=== PATIENT | female | born 1990 | race Caucasian/White ===

== ENCOUNTER 2018-11-27 06:26 | Inpatient (IN) | payer BC ==
[2018-11-27] MEDS ORDERED: Nalbuphine 20 MG/ML 1 ML Syringe IVPUSH PRN (07:04)
[2018-11-27] MEDS ORDERED: Ondansetron 4 MG/2 ML SDV IVPUSH PRN (07:04)
[2018-11-27] MEDS ORDERED: Sodium Chloride 0.9% 10 ML Syringe FLUSH PRN (07:04)
[2018-11-27] MEDS ORDERED: Oxytocin/Lactated Ringers 10 UNIT/1,000 ML BAG IV SCH ×2 (07:15→17:00)
--- NOTE | 2018-11-27 07:17 | PCM.LDHP ---
L&D History of Present Illness - General Date of Service: 11/27/18 Admit Problem/Dx: Patient Status Order with Admit Dx/Problem 11/27/18 07:04 Patient Status [ADT] Routine Admission Diagnosis/Problem Admission Diagnosis/Problem Normal labor Source of Information: Patient History Limitations: Reports: No Limitations - History of Present Illness Introduction:: Patient is a 28 y/o G 3 P0111 at 38 6/7 wks who presents in labor. Contractions started at about 0400 this AM. Along with contractions feels very nauseated. Throwing up with contractions at times. No concerns for LOF or VB. - Related Data Allergies/Adverse Reactions: Allergies Allergy/AdvReac Type Severity Reaction Status Date / Time No Known Allergies Allergy Verified 10/16/16 14:47 Past Medical History [employer]WORK ENG[employer]ER History: Reports: , Spontaneous : 3 Para: 1 LMP (Approximate): - Infectious Disease History Infectious Disease History: Reports: Herpes - Past Surgical History Musculoskeletal Surgical History: Reports: Other (See Below) (Wrist surgery) Social & Family History - Family History Family Medical History: Noncontributory - Tobacco Use Smoking Status *Q: Never Smoker - Alcohol Use Alcohol Use History: No - Recreational Drug Use Recreational Drug Use: No H&P Review of Systems - Review of Systems: Review Of Systems: See Below General: Reports: No Symptoms Pulmonary: Reports: No Symptoms Cardiovascular: Reports: No Symptoms Gastrointestinal: Reports: Nausea, Vomiting Genitourinary: Reports: No Symptoms Musculoskeletal: Reports: No Symptoms Skin: Reports: No Symptoms Psychiatric: Reports: No Symptoms Neurological: Reports: No Symptoms L&D Exam - Exam Exam: See Below - OB Specific Contraction Intensity: Moderate Movement: Active Heart Tones: Present Heart Tones per Min: 135 Heart Rate (FHR) Variability: Moderate (6-25 bmp) Presentation: Vertex - Coe Score Coe Score Cervix Position: Midposition Coe Score Consistency: Soft Coe Score Effacement: 51-70% Coe Score Dilation: 3-4 cm Coe Score 's Station: -2 Coe Score Total: 8 - Exam General: Alert, Oriented, Mild Distress Lungs: Clear to Auscultation, Normal Respiratory Effort Cardiovascular: Regular Rate, Regular Rhythm GI/Abdominal Exam: Soft, Non-Tender Genitourinary: Normal external exam Extremities: Normal Inspection Skin: Warm, Dry, Intact - Problem List (1) 38 weeks gestation of SNOMED Code(s): 39859639 ICD Code: Z3A.38 - 38 WEEKS GESTATION OF Status: Acute Current Visit: Yes (2) Normal labor SNOMED Code(s): 35572434 ICD Code: O80 - ENCOUNTER FOR FULL-TERM UNCOMPLICATED DELIVERY; Z37.9 - OUTCOME OF DELIVERY, UNSPECIFIED Status: Acute Current Visit: Yes Problem List Initiated/Reviewed/Updated: Yes Orders Last 24hrs: Active Orders 24 hr Category Date Time Status Patient Status [ADT] Routine ADT 11/27/18 07:04 Ordered Activity as Tolerated [RC] PFP Care 11/27/18 07:04 Ordered Communication Order [RC] ASDIRECTED Care 11/27/18 07:04 Ordered Heart Tones [RC] ASDIRECTED Care 11/27/18 07:04 Ordered Non Stress Test [RC] PER UNIT ROUTINE Care 11/27/18 07:04 Ordered Notify Provider [RC] PFP Care 11/27/18 07:04 Ordered Notify Provider [RC] PRN Care 11/27/18 07:04 Ordered Peripheral IV Care [RC] . DIRECTED Care 11/27/18 07:04 Ordered Vital Signs [RC] PER UNIT ROUTINE Care 11/27/18 07:04 Ordered Regular Diet [DIET] Diet 11/27/18 Breakfast Ordered CBC W/O DIFF,HEMOGRAM [HEME] Routine Lab 11/27/18 07:04 Ordered RAPID PLASMA REAGIN,RPR [CHEM] Routine Lab 11/27/18 07:04 Ordered TYPE AND SCREEN [BBK] Routine Lab 11/27/18 07:04 Ordered Lactated Ringers [Ringers, Lactated] 1,000 ml Med 11/27/18 07:15 Ordered IV ASDIRECTED Nalbuphine [Nubain] Med 11/27/18 07:04 Ordered 10 mg IVPUSH Q2H PRN Ondansetron [Zofran] Med 11/27/18 07:04 Ordered 4 mg IVPUSH Q4H PRN Oxytocin/Lactated Ringers [Pitocin in LR 10 Units/1,000 Med 11/27/18 07:15 Ordered ML] 10 unit in 1,000 ml IV .CONTINUOUS Sodium Chloride 0.9% [Saline Flush] Med 11/27/18 07:04 Ordered 10 ml FLUSH ASDIRECTED PRN Electronic Heart Tones Ext w TOCO [WOMSER] Oth 11/27/18 07:04 Ordered Routine Electronic Heart Tones Internal [WOMSER] Per Unit Ot 11/27/18 07:04 Ordered Routine Peripheral IV Insertion Adult [OM.PC] Routine Oth 11/27/18 07:04 Ordered Resuscitation Status Routine Resus Stat 11/27/18 07:04 Ordered Medication Orders Lactated Ringer's (Ringers, Lactated) 1,000 mls @ 100 mls/hr IV ASDIRECTED VINOD Oxytocin/Lactated Ringer's (Pitocin In Lr 10 Units/1,000 Ml) 10 unit in 1,000 mls @ 500 mls/hr IV .CONTINUOUS VINOD Nalbuphine HCl (Nubain) 10 mg IVPUSH Q2H PRN PRN Reason: pain Ondansetron HCl (Zofran) 4 mg IVPUSH Q4H PRN PRN Reason: Nausea/Vomiting Sodium Chloride (Saline Flush) 10 ml FLUSH ASDIRECTED PRN PRN Reason: Keep Vein Open Assessment/Plan Comment:: 28 y/o at 38 6/7 wks presents in early labor (cervix 1 cm last week in clinic, 2-3 and more effaced today) * Labs * GBS negative, no need for antibiotics * Pain management per patient preference * Hx of HSV, no concerns for outbreak * Anticipate
[2018-11-27] MEDS ORDERED: diphenhydrAMINE 50 MG/ML SDV IVPUSH PRN ×2 (07:30→08:42)
[2018-11-27] MEDS: Lactated Ringers 1,000 ML IV SCH ×5 (07:40→17:21)
[2018-11-27] MEDS ORDERED: fentaNYL 100 MCG/2 ML SDV EPIDUR PRN (08:42)
[2018-11-27] MEDS ORDERED: ePHEDrine 50 MG/ML SDV IVPUSH PRN (08:42)
[2018-11-27] MEDS ORDERED: fentaNYL 100 MCG/2 ML SDV ONE (08:53)
--- NOTE | 2018-11-27 09:18 | PCM.PREANE ---
Preanesthetic Assessment - Procedure Proposed Procedure: kym - Anesthesia/Transfusion/Family Hx Anesthesia History: Prior Anesthesia Without Reaction Family History of Anesthesia Reaction: No Transfusion History: No Prior Transfusion(s) - Review of Systems General: No Symptoms, Chills (today) Pulmonary: No Symptoms Cardiovascular: No Symptoms Gastrointestinal: No Symptoms Neurological: No Symptoms Other: Reports: None - Physical Assessment O2 Sat by Pulse Oximetry: 98 Respiratory Rate: 18 Vital Signs: Last Vital Signs Temp 98.2 F 11/27/18 07:04 Pulse 111 H 11/27/18 07:04 Resp 18 11/27/18 07:04 BP 115/65 11/27/18 07:04 Pulse Ox 98 11/27/18 07:04 Height: 5 ft 3 in Weight: 82.1 kg ASA Class: 2 Mental Status: Alert & Oriented x3 Airway Class: Mallampati = 1 Dentition: Reports: Normal Dentition Thyro-Mental Finger Breadths: 3 Mouth Opening Finger Breadths: 3 ROM/Head Extension: Full Lungs: Clear to Auscultation, Normal Respiratory Effort Cardiovascular: Regular Rate, Regular Rhythm - Lab Values: Laboratory Last Values WBC 13.39 K/mm3 (3.98-10.04) H 11/27/18 07:23 RBC 4.30 M/mm3 (3.98-5.22) 11/27/18 07:23 Hgb 13.0 gm/L (11.2-15.7) D 11/27/18 07:23 Hct 39.1 % (34.1-44.9) 11/27/18 07:23 MCV 90.9 fl (79.4-94.8) 11/27/18 07:23 MCH 30.2 pg (25.6-32.2) 11/27/18 07:23 MCHC 33.2 g/dl (32.2-35.5) 11/27/18 07:23 RDW Std Deviation 46.7 fL (36.4-46.3) H 11/27/18 07:23 Plt Count 230 K/mm3 (182-369) 11/27/18 07:23 MPV 9.7 fl (9.4-12.3) 11/27/18 07:23 - Allergies Allergies/Adverse Reactions: Allergies Allergy/AdvReac Type Severity Reaction Status Date / Time No Known Allergies Allergy Verified 10/16/16 14:47 - Blood Blood Available: No - Acknowledgements Anesthesia Type Planned: Epidural Pt an Appropriate Candidate for the Planned Anesthesia: Yes Alternatives and Risks of Anesthesia Discussed w Pt/Guardian: Yes Pt/Guardian Understands and Agrees with Anesthesia Plan: Yes PreAnesthesia Questionnaire - Past Health History Medical/Surgical History: Denies Medical/Surgical History Cardiovascular History: Reports: None Respiratory History: Reports: None LOCATION DIRECTOR History: Reports: , Spontaneous : 2 (39) Para: 1 - Infectious Disease History Infectious Disease History: Reports: Herpes - Past Surgical History HEENT Surgical History: Reports: None Musculoskeletal Surgical History: Reports: Other (See Below) (closed reduction wrist) - History Comment History Comment: meds: vits and iron and acyclovir - SUBSTANCE USE Smoking Status *Q: Never Smoker Tobacco Use Within Last Twelve Months: No Second Hand Smoke Exposure: No Days Per Week of Alcohol Use: 0 Recreational Drug Use History: No - CURRENT (IN HOUSE) MEDS Current Meds: Current Medications Diphenhydramine HCl (Benadryl) 25 mg IVPUSH Q4H PRN PRN Reason: Nausea/Vomiting Diphenhydramine HCl (Benadryl) 25 mg IVPUSH Q6H PRN PRN Reason: pruritis Stop: 11/27/18 18:00 Ephedrine Sulfate (Ephedrine Sulfate) 5 mg IVPUSH ASDIRECTED PRN PRN Reason: Hypotension Stop: 11/27/18 18:00 Fentanyl (Sublimaze) 100 mcg EPIDUR Q3H PRN PRN Reason: Pain Fentanyl/Bupivacaine HCl (Qljqpwwj-Rytbf-Iz 2 Mcg/Ml-0.125%) 100 ml EPIDUR ONETIME PRN PRN Reason: Pain Lactated Ringer's (Ringers, Lactated) 1,000 mls @ 100 mls/hr IV ASDIRECTED VINOD Last Admin: 11/27/18 08:30 Dose: 100 mls/hr Oxytocin/Lactated Ringer's (Pitocin In Lr 10 Units/1,000 Ml) 10 unit in 1,000 mls @ 500 mls/hr IV .CONTINUOUS VINOD Nalbuphine HCl (Nubain) 10 mg IVPUSH Q2H PRN PRN Reason: pain Ondansetron HCl (Zofran) 4 mg IVPUSH Q4H PRN PRN Reason: Nausea/Vomiting Last Admin: 11/27/18 07:45 Dose: 4 mg Sodium Chloride (Saline Flush) 10 ml FLUSH ASDIRECTED PRN PRN Reason: Keep Vein Open Discontinued Medications Fentanyl (Sublimaze) Confirm Administered Dose 100 mcg .ROUTE .[facility] ONE Stop: 11/27/18 08:54
[2018-11-27] MEDS: fentaNYL/Bupivacaine-NS 2 MCG/ML-0.125%/PF 100 ML Bag EPIDUR PRN ×2 (09:19→16:04)
[2018-11-27] MEDS ORDERED: Sodium Chloride 0.9% 1,000 ML IV ONE (12:04)
[2018-11-27] MEDS ORDERED: Sodium Chloride 0.9% 1,000 ML ONE (12:06)
--- NOTE | 2018-11-27 12:32 | PCM.PNLD ---
Labor Progress Note - VS & Meds Vital Signs: Last Vital Signs Temp 36.8 C 11/27/18 07:04 Pulse 111 H 11/27/18 07:04 Resp 18 11/27/18 09:18 BP 115/65 11/27/18 07:04 Pulse Ox 98 11/27/18 09:18 Active Medications: Current Medications Diphenhydramine HCl (Benadryl) 25 mg IVPUSH Q4H PRN PRN Reason: Nausea/Vomiting Diphenhydramine HCl (Benadryl) 25 mg IVPUSH Q6H PRN PRN Reason: pruritis Stop: 11/27/18 18:00 Ephedrine Sulfate (Ephedrine Sulfate) 5 mg IVPUSH ASDIRECTED PRN PRN Reason: Hypotension Stop: 11/27/18 18:00 Fentanyl (Sublimaze) 100 mcg EPIDUR Q3H PRN PRN Reason: Pain Last Admin: 11/27/18 09:19 Dose: 100 mcg Fentanyl/Bupivacaine HCl (Dtfcooin-Zgtjt-Ew 2 Mcg/Ml-0.125%) 100 ml EPIDUR ONETIME PRN PRN Reason: Pain Last Admin: 11/27/18 09:19 Dose: 100 ml Lactated Ringer's (Ringers, Lactated) 1,000 mls @ 100 mls/hr IV ASDIRECTED VINOD Last Admin: 11/27/18 10:21 Dose: 100 mls/hr Oxytocin/Lactated Ringer's (Pitocin In Lr 10 Units/1,000 Ml) 10 unit in 1,000 mls @ 500 mls/hr IV .CONTINUOUS VINOD Sodium Chloride (Normal Saline) 1,000 mls @ 999 mls/hr IV ONETIME ONE Stop: 11/27/18 13:04 Last Admin: 11/27/18 12:12 Dose: 999 mls/hr Nalbuphine HCl (Nubain) 10 mg IVPUSH Q2H PRN PRN Reason: pain Ondansetron HCl (Zofran) 4 mg IVPUSH Q4H PRN PRN Reason: Nausea/Vomiting Last Admin: 11/27/18 07:45 Dose: 4 mg Sodium Chloride (Saline Flush) 10 ml FLUSH ASDIRECTED PRN PRN Reason: Keep Vein Open Discontinued Medications Fentanyl (Sublimaze) Confirm Administered Dose 100 mcg .ROUTE .[facility]-MED ONE Stop: 11/27/18 08:54 Sodium Chloride (Normal Saline) Confirm Administered Dose 1,000 mls @ as directed .ROUTE .[employer] ONE Stop: 11/27/18 12:07 - Uterine Contractions Uterine Monitoring Mode: External [place] Contraction Intensity: Moderate - Monitoring Monitor Mode: External Ultrasound Heart Rate (FHR) Baseline: 135 Heart Rate (FHR) Variability: Moderate (6-25 bmp) Accelerations: Present, 15x15 Decelerations: None Strip Review: Category I - Vaginal Exam Dilation (cm): 5 Effacement (Percent): 80 Station: -1 Cervical Position: Midposition - Labor Progress (Free Text) Labor Progress: Doing well. Had attempted AROM at 1030, but did not get any fluid back. No BOW noted. Again attempted AROM, but no BOW noted. Patient is making change. Having continuous large amounts of watery diarrhea. Stool testing ordered. Will make Pediatric team aware as well.
[2018-11-27] MEDS ORDERED: Lidocaine 1.5% with EPINEPHrine 1:200,000 5 ML Amp ONE (14:00)
[2018-11-27] MEDS ORDERED: Bupivacaine 0.25% 10 ML SDV ONE (14:00)
[2018-11-27] MEDS ORDERED: Gentamicin 40 MG/ML 2 ML Vial IV ONE ×2 (15:15→15:30)
[2018-11-27] MEDS ORDERED: Ampicillin 2 GM in Sodium Chloride 0.9% 100 ML IV ONE (15:15)
[2018-11-27] MEDS ORDERED: fentaNYL/Bupivacaine-NS 2 MCG/ML-0.125%/PF 100 ML Bag EPIDUR ONE (15:24)
[2018-11-27] MEDS ORDERED: Acetaminophen 325 MG/10.15 ML ML PO PRN (16:32)
--- NOTE | 2018-11-27 17:59 | PCM.DEL ---
L & D Note - General Info Date of Service: 11/27/18 - Delivery Note Labor: Spontaneous Delivery Outcome: Livebirth Delivery Method: Spontaneous Vaginal Delivery-Single Delivery Mode: Spontaneous Presentation: Left Occiput Anterior (SERA) Nuchal Cord: None Anesthesia Type: Epidural Amniotic Fluid Description: Clear Episiotomy Type: None Laceration: 2nd Degree, Perineal Suture type: Vicryl Suture size: 2-0 Placenta: Intact, Spontaneous Cord: 3 Vessels Estimated Blood Loss: 200 : Bulb Syringe, Stimulated, Warmed, [place] Used, Warmer Used Delivery Comments (Free Text/Narrative):: Patient found to be complete and began pushing. Contractions very spaced out and contractions not felt to be strong. Pitocin started about 30 minutes into pushing. Contraction effort much improved. After about 1.5 hours head emerged from SERA presentation. No nuchal cord present. With gentle downward traction the shoulders and body delivered. placed on maternal abdomen. Cord clamped and cut. Cord blood obtained. Placenta allowed time to separate and expelled intact. Inspection of the perineum showed a 2nd degree laceration which was repaired with a 2-0 vicryl in the typical fashion - General Info Date of Service: 11/27/18 - Patient Data Vitals - Most Recent: Last Vital Signs Temp 36.8 C 11/27/18 07:04 Pulse 111 H 11/27/18 07:04 Resp 18 11/27/18 09:18 BP 115/65 11/27/18 07:04 Pulse Ox 98 11/27/18 09:18 Weight - Most Recent: 82.1 kg I&O - Last 24 Hours: Intake & Output 11/27/18 11/27/18 11/27/18 06:59 14:59 22:59 Intake Total 4360 1200 Balance 4360 1200 Lab Results Last 24 Hours: Laboratory Results - last 24 hr 11/27/18 11/27/18 11/27/18 Range/Units 07:13 07:13 07:23 WBC 13.39 H (3.98-10.04) K/mm3 RBC 4.30 (3.98-5.22) M/mm3 Hgb 13.0 D (11.2-15.7) gm/L Hct 39.1 (34.1-44.9) % MCV 90.9 (79.4-94.8) fl MCH 30.2 (25.6-32.2) pg MCHC 33.2 (32.2-35.5) g/dl RDW Std Deviation 46.7 H (36.4-46.3) fL Plt Count 230 (182-369) K/mm3 MPV 9.7 (9.4-12.3) fl RPR Non-reactive (NONREACTIVE) C.difficile 027-NAP1-B1 C. difficile Tox (PCR) Blood Type O POSITIVE Gel Antibody Screen Negative 11/27/18 Range/Units 11:15 WBC (3.98-10.04) K/mm3 RBC (3.98-5.22) M/mm3 Hgb (11.2-15.7) gm/L Hct (34.1-44.9) % MCV (79.4-94.8) fl MCH (25.6-32.2) pg MCHC (32.2-35.5) g/dl RDW Std Deviation (36.4-46.3) fL Plt Count (182-369) K/mm3 MPV (9.4-12.3) fl RPR (NONREACTIVE) C.difficile 027-NAP1-B1 Presumptive negative C. difficile Tox (PCR) Negative Blood Type Gel Antibody Screen Med Orders - Current: Current Medications Acetaminophen (Tylenol) 975 mg PO Q6H PRN PRN Reason: Fever Last Admin: 11/27/18 16:42 Dose: 975 mg Diphenhydramine HCl (Benadryl) 25 mg IVPUSH Q4H PRN PRN Reason: Nausea/Vomiting Diphenhydramine HCl (Benadryl) 25 mg IVPUSH Q6H PRN PRN Reason: pruritis Stop: 11/27/18 18:00 Ephedrine Sulfate (Ephedrine Sulfate) 5 mg IVPUSH ASDIRECTED PRN PRN Reason: Hypotension Stop: 11/27/18 18:00 Fentanyl (Sublimaze) 100 mcg EPIDUR Q3H PRN PRN Reason: Pain Last Admin: 11/27/18 09:19 Dose: 100 mcg Fentanyl/Bupivacaine HCl (Xnruxauz-Zrrxy-Ai 2 Mcg/Ml-0.125%) 100 ml EPIDUR ONETIME PRN PRN Reason: Pain Last Admin: 11/27/18 16:04 Dose: 100 ml Lactated Ringer's (Ringers, Lactated) 1,000 mls @ 100 mls/hr IV ASDIRECTED VINOD Last Admin: 11/27/18 17:21 Dose: 100 mls/hr Oxytocin/Lactated Ringer's (Pitocin In Lr 10 Units/1,000 Ml) 10 unit in 1,000 mls @ 500 mls/hr IV .CONTINUOUS VINOD Oxytocin/Lactated Ringer's (Pitocin In Lr 10 Units/1,000 Ml) 10 unit in 1,000 mls @ 12 mls/hr IV TITRATE VINOD; Protocol Last Titration: 11/27/18 17:35 Dose: 6 munits/min, 36 mls/hr Nalbuphine HCl (Nubain) 10 mg IVPUSH Q2H PRN PRN Reason: pain Ondansetron HCl (Zofran) 4 mg IVPUSH Q4H PRN PRN Reason: Nausea/Vomiting Last Admin: 11/27/18 07:45 Dose: 4 mg Sodium Chloride (Saline Flush) 10 ml FLUSH ASDIRECTED PRN PRN Reason: Keep Vein Open Discontinued Medications Fentanyl (Sublimaze) Confirm Administered Dose 100 mcg .ROUTE .[facility]-MED ONE Stop: 11/27/18 08:54 Fentanyl/Bupivacaine HCl (Imgwjztc-Qsege-Ib 2 Mcg/Ml-0.125%) 100 ml EPIDUR ONETIME ONE Stop: 11/27/18 15:25 Gentamicin Sulfate (Gentamicin) 410 mg IV ONETIME ONE Stop: 11/27/18 15:16 Gentamicin Sulfate (Gentamicin) 5 mg IV .Pharmacy to Dose ONE Stop: 11/27/18 15:31 Sodium Chloride (Normal Saline) 1,000 mls @ 999 mls/hr IV ONETIME ONE Stop: 11/27/18 13:04 Last Admin: 11/27/18 12:12 Dose: 999 mls/hr Sodium Chloride (Normal Saline) Confirm Administered Dose 1,000 mls @ as directed .ROUTE .[facility]-MED ONE Stop: 11/27/18 12:07 Ampicillin Sodium 2 gm/ Sodium (Chloride) 100 mls @ 200 mls/hr IV ONETIME ONE Stop: 11/27/18 15:44 Last Admin: 11/27/18 15:28 Dose: 200 mls/hr Gentamicin Sulfate 410 mg/ (Sodium Chloride) 110.25 mls @ 220.5 mls/hr IV ONETIME ONE Stop: 11/27/18 15:59 Last Admin: 11/27/18 15:43 Dose: 220.5 mls/hr - Problem List & Annotations (1) 38 weeks gestation of SNOMED Code(s): 34221654 Code(s): Z3A.38 - 38 WEEKS GESTATION OF Status: Acute Current Visit: Yes (2) Normal labor SNOMED Code(s): 28250794 Code(s): O80 - ENCOUNTER FOR FULL-TERM UNCOMPLICATED DELIVERY; Z37.9 - OUTCOME OF DELIVERY, UNSPECIFIED Status: Acute Current Visit: Yes (3) Diarrhea SNOMED Code(s): 66813299 Code(s): R19.7 - DIARRHEA, UNSPECIFIED Status: Acute Current Visit: Yes (4) Chorioamnionitis SNOMED Code(s): 32639799 Code(s): O41.1290 - CHORIOAMNIONITIS, UNSP TRIMESTER, NOT APPLICABLE OR UNSP Status: Acute Current Visit: Yes Qualifiers: Fetus number: single or unspecified fetus Trimester: third trimester Qualified Code(s): O41.1230 - Chorioamnionitis, third trimester, not applicable or unspecified (5) Vaginal delivery SNOMED Code(s): 076167422 Code(s): O80 - ENCOUNTER FOR FULL-TERM UNCOMPLICATED DELIVERY Status: Acute Current Visit: Yes - Problem List Review Problem List Initiated/Reviewed/Updated: Yes - My Orders Last 24 Hours: My Active Orders 11/27/18 07:04 Patient Status [ADT] Routine Activity as Tolerated [RC] PFP Communication Order [RC] ASDIRECTED Heart Tones [RC] ASDIRECTED Notify Provider [RC] PFP Notify Provider [RC] PRN Peripheral IV Care [RC] . DIRECTED Vital Signs [RC] PER UNIT ROUTINE Nalbuphine [Nubain] 10 mg IVPUSH Q2H PRN Ondansetron [Zofran] 4 mg IVPUSH Q4H PRN Sodium Chloride 0.9% [Saline Flush] 10 ml FLUSH ASDIRECTED PRN Electronic Heart Tones Ext w TOCO [WOMSER] Routine Electronic Heart Tones Internal [WOMSER] Per Unit Routine Peripheral IV Insertion Adult [OM.PC] Routine Resuscitation Status Routine 11/27/18 07:15 Lactated Ringers [Ringers, Lactated] 1,000 ml IV ASDIRECTED Oxytocin/Lactated Ringers [Pitocin in LR 10 Units/1,000 ML] 10 unit in 1,000 ml IV .CONTINUOUS 11/27/18 07:30 diphenhydrAMINE [Benadryl] 25 mg IVPUSH Q4H PRN 11/27/18 11:04 Isolation [COMM] Stat 11/27/18 11:15 CULTURE STOOL + SHIGATOX [RM] Routine 11/27/18 16:32 Acetaminophen [Tylenol] 975 mg PO Q6H PRN 11/27/18 17:00 Oxytocin/Lactated Ringers [Pitocin in LR 10 Units/1,000 ML] 10 unit in 1,000 ml IV TITRATE 11/27/18 17:56 Patient Status Manage Transfer [TRANSFER] Routine 11/27/18 Breakfast Regular Diet [DIET] - Assessment Assessment:: 28 y/o G3 now P1112 PPD#0 from at 38 6/7 wks - Plan Plan:: * S/p Amp and Gent. No further antibiotics planned. Will monitor closely * Monitor diarrhea, awaiting stool testing * Encourage breast feeding * Discharge home in 2 days
[2018-11-27] MEDS ORDERED: Witch Hazel Medicated Pads 40/Jar TOP PRN (18:31)
[2018-11-27] MEDS ORDERED: Docusate Sodium 100 MG Cap PO PRN (18:31)
[2018-11-27] MEDS ORDERED: Benzocaine/Menthol 20%-0.5% Spray 56 GM Canister TOP PRN (18:31)
[2018-11-27] MEDS ORDERED: Lanolin 100% Cream 7 GM Tube TOP PRN (18:31)
--- NOTE | 2018-11-27 20:53 | PCM.SN ---
- Free Text/Narrative Note: 1530 Called by nursing due to patient finding of fever. Ordered gent and ampicillin to treat presumed chorioamnionitis. Nursing notes with SVE does not feel membranes, but again does not notice leaking of fluid. Will continue to monitor Alyssa To MD
[2018-11-27] MEDS: Ibuprofen 600 MG Tab PO PRN (22:57)
[2018-11-28] MEDS: Acetaminophen 325 MG Tab PO PRN ×2 (03:12→10:05)
[2018-11-28] MEDS: Ibuprofen 600 MG Tab PO PRN ×3 (05:23→21:56)
--- NOTE | 2018-11-28 06:42 | PCM.PNPP ---
- General Info Date of Service: 11/28/18 Functional Status: Reports: Pain Controlled, Tolerating Diet, Ambulating, Urinating - Review of Systems General: Reports: No Symptoms Pulmonary: Reports: No Symptoms Cardiovascular: Reports: No Symptoms Gastrointestinal: Reports: No Symptoms (Diarrhea resolved last night ) Genitourinary: Reports: No Symptoms Musculoskeletal: Reports: No Symptoms - Patient Data Vital Signs - Most Recent: Last Vital Signs Temp 37.0 C 11/28/18 03:10 Pulse 104 H 11/28/18 03:10 Resp 16 11/28/18 03:10 BP 108/57 L 11/28/18 03:10 Pulse Ox 98 11/28/18 03:10 Weight - Most Recent: 82.1 kg I&O - Last 24 Hours: Intake & Output 11/27/18 11/27/18 11/28/18 14:59 22:59 06:59 Intake Total 4360 1200 Balance 4360 1200 Lab Results - Last 24 Hours: Laboratory Results - last 24 hr 11/27/18 11/27/18 11/27/18 Range/Units 07:13 07:13 07:23 WBC 13.39 H (3.98-10.04) K/mm3 RBC 4.30 (3.98-5.22) M/mm3 Hgb 13.0 D (11.2-15.7) gm/L Hct 39.1 (34.1-44.9) % MCV 90.9 (79.4-94.8) fl MCH 30.2 (25.6-32.2) pg MCHC 33.2 (32.2-35.5) g/dl RDW Std Deviation 46.7 H (36.4-46.3) fL Plt Count 230 (182-369) K/mm3 MPV 9.7 (9.4-12.3) fl RPR Non-reactive (NONREACTIVE) C.difficile 027-NAP1-B1 C. difficile Tox (PCR) Blood Type O POSITIVE Gel Antibody Screen Negative 11/27/18 Range/Units 11:15 WBC (3.98-10.04) K/mm3 RBC (3.98-5.22) M/mm3 Hgb (11.2-15.7) gm/L Hct (34.1-44.9) % MCV (79.4-94.8) fl MCH (25.6-32.2) pg MCHC (32.2-35.5) g/dl RDW Std Deviation (36.4-46.3) fL Plt Count (182-369) K/mm3 MPV (9.4-12.3) fl RPR (NONREACTIVE) C.difficile 027-NAP1-B1 Presumptive negative C. difficile Tox (PCR) Negative Blood Type Gel Antibody Screen Med Orders - Current: Current Medications Acetaminophen (Tylenol) 650 mg PO Q4H PRN PRN Reason: mild pain or fever Last Admin: 11/28/18 03:12 Dose: 650 mg Benzocaine/Menthol (Dermoplast Pain Relief [place]) 0 gm TOP ASDIRECTED PRN PRN Reason: Perineal Comfort Measure Docusate Sodium (Colace) 100 mg PO BID PRN PRN Reason: Constipation Emollient Ointment (Lansinoh Hpa) 0 gm TOP ASDIRECTED PRN PRN Reason: Sore Nipples Ibuprofen (Motrin) 600 mg PO Q6H PRN PRN Reason: Mild pain or fever Last Admin: 11/28/18 05:23 Dose: 600 mg Witch Alejandra (Tucks) 1 pad TOP ASDIRECTED PRN PRN Reason: Perineal Comfort Measure Discontinued Medications Acetaminophen (Tylenol) 975 mg PO Q6H PRN PRN Reason: Fever Last Admin: 11/27/18 16:42 Dose: 975 mg Diphenhydramine HCl (Benadryl) 25 mg IVPUSH Q4H PRN PRN Reason: Nausea/Vomiting Diphenhydramine HCl (Benadryl) 25 mg IVPUSH Q6H PRN PRN Reason: pruritis Stop: 11/27/18 18:00 Ephedrine Sulfate (Ephedrine Sulfate) 5 mg IVPUSH ASDIRECTED PRN PRN Reason: Hypotension Stop: 11/27/18 18:00 Fentanyl (Sublimaze) 100 mcg EPIDUR Q3H PRN PRN Reason: Pain Last Admin: 11/27/18 09:19 Dose: 100 mcg Fentanyl (Sublimaze) Confirm Administered Dose 100 mcg .ROUTE .STK-MED ONE Stop: 11/27/18 08:54 Fentanyl/Bupivacaine HCl (Azlplfoi-Olcgh-Md 2 Mcg/Ml-0.125%) 100 ml EPIDUR ONETIME PRN PRN Reason: Pain Last Admin: 11/27/18 16:04 Dose: 100 ml Fentanyl/Bupivacaine HCl (Boeydhvi-Ekzfz-Pj 2 Mcg/Ml-0.125%) 100 ml EPIDUR ONETIME ONE Stop: 11/27/18 15:25 Gentamicin Sulfate (Gentamicin) 5 mg IV .Pharmacy to Dose ONE Stop: 11/27/18 15:31 Lactated Ringer's (Ringers, Lactated) 1,000 mls @ 100 mls/hr IV ASDIRECTED VINOD Last Admin: 11/27/18 17:21 Dose: 100 mls/hr Oxytocin/Lactated Ringer's (Pitocin In Lr 10 Units/1,000 Ml) 10 unit in 1,000 mls @ 500 mls/hr IV .CONTINUOUS VINOD Sodium Chloride (Normal Saline) 1,000 mls @ 999 mls/hr IV ONETIME ONE Stop: 11/27/18 13:04 Last Admin: 11/27/18 12:12 Dose: 999 mls/hr Sodium Chloride (Normal Saline) Confirm Administered Dose 1,000 mls @ as directed .ROUTE .STK-MED ONE Stop: 11/27/18 12:07 Ampicillin Sodium 2 gm/ Sodium (Chloride) 100 mls @ 200 mls/hr IV ONETIME ONE Stop: 11/27/18 15:44 Last Admin: 11/27/18 15:28 Dose: 200 mls/hr Gentamicin Sulfate 410 mg/ (Sodium Chloride) 110.25 mls @ 220.5 mls/hr IV ONETIME ONE Stop: 11/27/18 15:59 Last Admin: 11/27/18 15:43 Dose: 220.5 mls/hr Oxytocin/Lactated Ringer's (Pitocin In Lr 10 Units/1,000 Ml) 10 unit in 1,000 mls @ 12 mls/hr IV TITRATE VINOD; Protocol Last Titration: 11/27/18 17:35 Dose: 6 munits/min, 36 mls/hr Nalbuphine HCl (Nubain) 10 mg IVPUSH Q2H PRN PRN Reason: pain Ondansetron HCl (Zofran) 4 mg IVPUSH Q4H PRN PRN Reason: Nausea/Vomiting Last Admin: 11/27/18 07:45 Dose: 4 mg Sodium Chloride (Saline Flush) 10 ml FLUSH ASDIRECTED PRN PRN Reason: Keep Vein Open - Interaction Disposition, : Agenda to Nursery Feeding: Attempted ; Nursed Fair/Poor Support Person: - Recovery Exam Fundal Tone: Firm Fundal Level: At Umbilicus Fundal Placement: Midline Lochia Amount: Small Lochia Color: Rubra/Red Perineum Description: Edematous Bladder Status: Voiding Urinary Elimination: Voided - Exam General: Alert, Oriented, Cooperative GI/Abdominal Exam: Soft, Non-Tender Extremities: Normal Inspection Skin: Warm, Dry, Intact - Problem List & Annotations (1) 38 weeks gestation of SNOMED Code(s): 68988387 Code(s): Z3A.38 - 38 WEEKS GESTATION OF Status: Acute Current Visit: Yes (2) Normal labor SNOMED Code(s): 21730953 Code(s): O80 - ENCOUNTER FOR FULL-TERM UNCOMPLICATED DELIVERY; Z37.9 - OUTCOME OF DELIVERY, UNSPECIFIED Status: Acute Current Visit: Yes (3) Diarrhea SNOMED Code(s): 41605889 Code(s): R19.7 - DIARRHEA, UNSPECIFIED Status: Acute Current Visit: Yes (4) Chorioamnionitis SNOMED Code(s): 99029375 Code(s): O41.1290 - CHORIOAMNIONITIS, UNSP TRIMESTER, NOT APPLICABLE OR UNSP Status: Acute Current Visit: Yes Qualifiers: Fetus number: single or unspecified fetus Trimester: third trimester Qualified Code(s): O41.1230 - Chorioamnionitis, third trimester, not applicable or unspecified (5) Vaginal delivery SNOMED Code(s): 651599953 Code(s): O80 - ENCOUNTER FOR FULL-TERM UNCOMPLICATED DELIVERY Status: Acute Current Visit: Yes - Problem List Review Problem List Initiated/Reviewed/Updated: Yes - My Orders Last 24 Hours: My Active Orders 11/27/18 07:04 Activity as Tolerated [RC] PFP Communication Order [RC] ASDIRECTED Heart Tones [RC] ASDIRECTED Notify Provider [RC] PFP Notify Provider [RC] PRN Peripheral IV Care [RC] . DIRECTED Resuscitation Status Routine 11/27/18 11:15 CULTURE STOOL + SHIGATOX [RM] Routine 11/27/18 18:31 Activity as Tolerated [RC] PER UNIT ROUTINE Vital Signs [RC] 03,09,15,21 Acetaminophen [Tylenol] 650 mg PO Q4H PRN Benzocaine/Menthol [Dermoplast Pain Relief [place]] See Dose Instructions TOP ASDIRECTED PRN Docusate Sodium [Colace] 100 mg PO BID PRN Ibuprofen [Motrin] 600 mg PO Q6H PRN Lanolin [Lansinoh HPA] See Dose Instructions TOP ASDIRECTED PRN Witch Alejandra [Tucks] 1 pad TOP ASDIRECTED PRN Assess Lochia [WOMSER] Per Unit Routine Assess Uterine Involution [WOMSER] Per Unit Routine Breast Pump [WOMSER] Per Unit Routine Heat Therapy [OM.PC] PRN Ice Therapy [OM.PC] Per Unit Routine Perineal Care [OM.PC] Per Unit Routine Peripheral IV Discontinue [OM.PC] Routine Sitz Bath [OM.PC] Per Unit Routine 11/27/18 Dinner Regular Diet [DIET] 11/28/18 18:31 Heat Therapy [OM.PC] PRN - Assessment Assessment:: 28 y/o G3 now P1112 PPD#1 from at 38 6/7 wks - Plan Plan:: * S/p Amp and Gent. No further antibiotics planned. Afebrile overnight * Routine cares * Encourage breast feeding * Discharge home today
--- NOTE | 2018-11-28 10:16 | PCM48HPAN ---
Post Anesthesia Note - EVALUATION WITHIN 48HRS OF ANESTHETIC Vital Signs in Normal Range: Yes Patient Participated in Evaluation: Yes Respiratory Function Stable: Yes Airway Patent: Yes Cardiovascular Function Stable: Yes Hydration Status Stable: Yes Pain Control Satisfactory: Yes Nausea and Vomiting Control Satisfactory: Yes Mental Status Recovered: Yes
[2018-11-29] MEDS: Acetaminophen 325 MG Tab PO PRN (08:37)
--- NOTE | 2018-11-29 09:56 | PCM.DCSUM1 ---
Discharge Summary - Discharge Data Discharge Date: 11/29/18 Discharge Disposition: Home, Self-Care 01 Condition: Good - Discharge Diagnosis/Problem(s) (1) 38 weeks gestation of SNOMED Code(s): 81856948 ICD Code: Z3A.38 - 38 WEEKS GESTATION OF Status: Acute Current Visit: Yes (2) Normal labor SNOMED Code(s): 21728387 ICD Code: O80 - ENCOUNTER FOR FULL-TERM UNCOMPLICATED DELIVERY; Z37.9 - OUTCOME OF DELIVERY, UNSPECIFIED Status: Acute Current Visit: Yes (3) Diarrhea SNOMED Code(s): 02360124 ICD Code: R19.7 - DIARRHEA, UNSPECIFIED Status: Acute Current Visit: Yes Qualifiers: Diarrhea type: unspecified type Qualified Code(s): R19.7 - Diarrhea, unspecified (4) Chorioamnionitis SNOMED Code(s): 58441924 ICD Code: O41.1290 - CHORIOAMNIONITIS, UNSP TRIMESTER, NOT APPLICABLE OR UNSP Status: Acute Current Visit: Yes Qualifiers: Fetus number: single or unspecified fetus Trimester: third trimester Qualified Code(s): O41.1230 - Chorioamnionitis, third trimester, not applicable or unspecified (5) Vaginal delivery SNOMED Code(s): 895568835 ICD Code: O80 - ENCOUNTER FOR FULL-TERM UNCOMPLICATED DELIVERY Status: Acute Current Visit: Yes - Patient Summary/Data Complications: None Consults: None Recommended Follow-up Testing/Procedures: Follow up in 3 weeks for check Hospital Course: 28 y/o at 38 6/7 wks presented in labor and also with severe diarrhea. Given severity of diarrhea stool samples collected. While in labor did spike a fever. Source uncertain given diarrhea, but noted to likely have been ruptured prior to presenting to hospital (uncertain length of time) and so treated for chorioamnionitis. She progressed well and underwent an uncomplicated . her diarrhea resolved. No further concerns. Discharged home on PPD# 2 - Patient Instructions Diet: Regular Diet as Tolerated Activity: As Tolerated Activity, Other: Pelvic Rest for 6 weeks Driving: May Drive Today Showering/Bathing: May Shower Showering/Bathing, Other: May Bathe Notify Provider of: Fever, Increased Pain, Swelling and Redness, Drainage, Nausea and/or Vomiting - Discharge Plan *PRESCRIPTION DRUG MONITORING PROGRAM REVIEWED*: Not Applicable *COPY OF PRESCRIPTION DRUG MONITORING REPORT IN PATIENT SUE: Not Applicable Home Medications: Home Meds Docusate Sodium [Colace] 100 mg PO BID PRN cap 11/28/18 [Rx] Ibuprofen [Motrin] 600 mg PO Q6H PRN tablet 11/28/18 [Rx] Patient Handouts: Home Care Instructions for Mom Referrals: Alyssa To MD [Primary Care Provider] - (3 weeks for check ) - Discharge Summary/Plan Comment DC Time >30 min.: No - Patient Data Vitals - Most Recent: Last Vital Signs Temp 36.7 C 11/29/18 08:32 Pulse 74 11/29/18 08:32 Resp 14 11/29/18 08:32 BP 109/66 11/29/18 08:32 Pulse Ox 97 11/29/18 08:32 Weight - Most Recent: 82.1 kg I&O - Last 24 hours: Intake & Output 11/28/18 11/29/18 11/29/18 22:59 06:59 14:59 Intake Total 60 Balance 60 GONZALEZ Results - Last 24 hrs: Microbiology 11/27/18 11:15 Shiga Toxin I - Final Stool / Feces NEGATIVE FOR SHIGA TOXIN 1 REFERENCE RANGE: NEGATIVE Shiga Toxin II - Final NEGATIVE FOR SHIGA TOXIN 2 REFERENCE RANGE: NEGATIVE Med Orders - Current: Current Medications Acetaminophen (Tylenol) 650 mg PO Q4H PRN PRN Reason: mild pain or fever Last Admin: 11/29/18 08:37 Dose: 650 mg Benzocaine/Menthol (Dermoplast Pain Relief [place]) 0 gm TOP ASDIRECTED PRN PRN Reason: Perineal Comfort Measure Docusate Sodium (Colace) 100 mg PO BID PRN PRN Reason: Constipation Emollient Ointment (Lansinoh Hpa) 0 gm TOP ASDIRECTED PRN PRN Reason: Sore Nipples Ibuprofen (Motrin) 600 mg PO Q6H PRN PRN Reason: Mild pain or fever Last Admin: 11/28/18 21:56 Dose: 600 mg Witch Alejandra (Tucks) 1 pad TOP ASDIRECTED PRN PRN Reason: Perineal Comfort Measure Discontinued Medications Acetaminophen (Tylenol) 975 mg PO Q6H PRN PRN Reason: Fever Last Admin: 11/27/18 16:42 Dose: 975 mg Bupivacaine HCl (Sensorcaine-Mpf 0.25%) 10 ml .ROUTE .STK-MED ONE Stop: 11/27/18 14:01 Diphenhydramine HCl (Benadryl) 25 mg IVPUSH Q4H PRN PRN Reason: Nausea/Vomiting Diphenhydramine HCl (Benadryl) 25 mg IVPUSH Q6H PRN PRN Reason: pruritis Stop: 11/27/18 18:00 Ephedrine Sulfate (Ephedrine Sulfate) 5 mg IVPUSH ASDIRECTED PRN PRN Reason: Hypotension Stop: 11/27/18 18:00 Fentanyl (Sublimaze) 100 mcg EPIDUR Q3H PRN PRN Reason: Pain Last Admin: 11/27/18 09:19 Dose: 100 mcg Fentanyl (Sublimaze) Confirm Administered Dose 100 mcg .ROUTE .STK-MED ONE Stop: 11/27/18 08:54 Fentanyl/Bupivacaine HCl (Nrvdwnyl-Ugrcs-Cp 2 Mcg/Ml-0.125%) 100 ml EPIDUR ONETIME PRN PRN Reason: Pain Last Admin: 11/27/18 16:04 Dose: 100 ml Fentanyl/Bupivacaine HCl (Wumkxxep-Xlpbh-Jy 2 Mcg/Ml-0.125%) 100 ml EPIDUR ONETIME ONE Stop: 11/27/18 15:25 Gentamicin Sulfate (Gentamicin) 5 mg IV .Pharmacy to Dose ONE Stop: 11/27/18 15:31 Lactated Ringer's (Ringers, Lactated) 1,000 mls @ 100 mls/hr IV ASDIRECTED VINOD Last Admin: 11/27/18 17:21 Dose: 100 mls/hr Oxytocin/Lactated Ringer's (Pitocin In Lr 10 Units/1,000 Ml) 10 unit in 1,000 mls @ 500 mls/hr IV .CONTINUOUS [facility] Sodium Chloride (Normal Saline) 1,000 mls @ 999 mls/hr IV ONETIME ONE Stop: 11/27/18 13:04 Last Admin: 11/27/18 12:12 Dose: 999 mls/hr Sodium Chloride (Normal Saline) Confirm Administered Dose 1,000 mls @ as directed .ROUTE .STK-MED ONE Stop: 11/27/18 12:07 Ampicillin Sodium 2 gm/ Sodium (Chloride) 100 mls @ 200 mls/hr IV ONETIME ONE Stop: 11/27/18 15:44 Last Admin: 11/27/18 15:28 Dose: 200 mls/hr Gentamicin Sulfate 410 mg/ (Sodium Chloride) 110.25 mls @ 220.5 mls/hr IV ONETIME ONE Stop: 11/27/18 15:59 Last Admin: 11/27/18 15:43 Dose: 220.5 mls/hr Oxytocin/Lactated Ringer's (Pitocin In Lr 10 Units/1,000 Ml) 10 unit in 1,000 mls @ 12 mls/hr IV TITRATE VINOD; Protocol Last Titration: 11/27/18 17:35 Dose: 6 munits/min, 36 mls/hr Lidocaine/Epinephrine (Xylocaine-Mpf 1.5% W/Epinephrine 1:200,000) 5 ml .ROUTE .STK-MED ONE Stop: 11/27/18 14:01 Nalbuphine HCl (Nubain) 10 mg IVPUSH Q2H PRN PRN Reason: pain Ondansetron HCl (Zofran) 4 mg IVPUSH Q4H PRN PRN Reason: Nausea/Vomiting Last Admin: 11/27/18 07:45 Dose: 4 mg Sodium Chloride (Saline Flush) 10 ml FLUSH ASDIRECTED PRN PRN Reason: Keep Vein Open
[2018-11-29] MEDS: Ibuprofen 600 MG Tab PO PRN (14:29)
[2018-11-29 17:45] VITALS: BP 125/63
== END 2018-11-29 16:15 | disposition home or self-care (01) | DRG 560 ==
LOC: JD.OBCHECK 06:26 → JD.OB 06:27 → JD.OBCHECK 07:04 → JD.OB 07:04 → OBSVTOIN 17:38 → JD.OB 17:39
PROVIDERS: ADMIT Obstetrics & Gynecology; ATTEND Obstetrics & Gynecology
PROC: 0KQM0ZZ Repair Perineum Muscle, Open Approach (ICD-10-PCS; principal; 2018-11-27)
PROC: 10E0XZZ Delivery of Products of Conception, External Approach (ICD-10-PCS; principal; 2018-11-27)
PROC: 6A550ZT Pheresis of Cord Blood Stem Cells, Single (ICD-10-PCS; principal; 2018-11-27)
PROC: 3E0R3BZ Introduction of Anesthetic Agent into Spinal Canal, Percutaneous Approach (ICD-10-PCS; 2018-11-27)
PROC: 00HU33Z Insertion of Infusion Device into Spinal Canal, Percutaneous Approach (ICD-10-PCS; 2018-11-27)
DX: O98.32 Other infections with a predominantly sexual mode of transmission complicating childbirth (principal); O41.1230 Chorioamnionitis, third trimester, not applicable or unspecified; A60.00 Herpesviral infection of urogenital system, unspecified; O70.1 Second degree perineal laceration during delivery; Z3A.38 38 weeks gestation of pregnancy; Z37.0 Single live birth; O75.89 Other specified complications of labor and delivery; R19.7 Diarrhea, unspecified
CPT/HCPCS: 01967; 36415; 51702; 59025; 59409; 85027; 86592; 86850; 86900; 86901; 87046; 87427; 87493; A9270-GY; J0290; J1580; J2405; J2590; J3010; J3490; J7030; J7040; J7120